=== PATIENT | female | born 1945 | race Caucasian/White ===

== ENCOUNTER 2025-08-23 16:46 | Emergency (ER) | payer OTHER, SELFPAY ==
[2025-08-23 16:49] VITALS: BP 187/79
--- NOTE | 2025-08-23 19:05 | ED.GENMED ---
History of Present Illness
General
Chief Complaint: Head Injury
Source: patient
Exam Limitations: none
Time Seen by Provider: 08/23/25 18:48
Nursing documentation reviewed up to this point in time: agreed with
History of Present Illness
History of Present Illness:
Patient is 80-year-old Female with history of hypertension hyperlipidemia presents to the ER for trip and fall. She tripped over uneven sidewalk. Daughter was with pt.
Patient hit her face and complains of abrasions to her nose. She denies loss of consciousness
she is not on blood thinners only aspirin denies any headache. She denies any neck or back pain.
Phy Exam
General Physical Exam
General Presentation: no apparent distress
General age: appears stated age
General Skin: warm and dry
General Habitus: elderly
General Mental: alert
General Hydration: appears well hydrated
ENT Exam
ENT Exam: EOMI and neck supple
Additional ENT: + abrasions to nose dried blood in nose no active bleeding
Eye Exam
Eye Exam: PERRL and EOMI
Eye Exam General: PERRL: bilateral and EOM intact: bilateral
Pupil Exam: Bilateral: round and reactive
Neurological Exam
Neurological Exam: alert and oriented x3
Musculoskeletal Exam
Musculoskeletal Exam: full ROM and other ( no bony C-spine tenderness )
Skin Exam
Skin Exam: normal color and warm/dry
Psychiatric Exam
Psychiatric Exam: normal mood/affect
Course
Orders/Labs/Results
Orders:
Orders
08/23/25 16:[address] [CT Head W/o Iv Contrast] Urgent
Comment:
Reason For Exam: fall hit head
Vital Signs
Initial and Last Documented VS:
Initial Vital Signs
Temp Pulse Resp BP Pulse Ox
98.9 F 82 19 187/79 98
08/23/25 16:49 08/23/25 16:49 08/23/25 16:49 08/23/25 16:49 08/23/25 16:49
Last Documented Vital Signs
Temp Pulse Resp BP Pulse Ox
98.9 F 82 19 187/79 98
08/23/25 16:49 08/23/25 16:49 08/23/25 16:49 08/23/25 16:49 08/23/25 19:05
MDM/Problems Addressed
Differential Diagnosis Includes:
Not limited to head injury, intracranial hemorrhage, abrasions
MDM/Problems Addressed:
CAT scan negative for intracranial hemorrhage patient has small abrasions to the nose minimal swelling likely contusion no orbital tenderness or orbital deformities. Patient is on aspirin only. Tetanus updated. Patient is well-appearing.
*Radiology
Radiology exam reviewed: radiology read reviewed
*Pulse Oximetry
SaO2: 98
Oxygen Mode of Delivery: Room air
Patient hypoxic: no
*Critical Care Note
Total Time (30-74mins, 75-104mins- exclusive of procedures): Not Applicable
ED Attending Note
-
Portions of this chart may have been created with voice recognition software.� Occasional wrong word or��sound alike� substitutions may have occurred due to the inherent limitations of voice recognition software.
Discharge Plan
Departure
Patient Disposition: Home (Routine Discharge)
Date of Disposition: 08/23/25
Time of Disposition: 19:21
Patient with high blood pressure during this ER visit?: Yes
Condition: Fair
Covid-19: Not Applicable
Discharge Problem:
Head injury, Abrasion of face
Instructions: Head Injury in Adults (DC), Contusion (DC), Abrasions - ED (DC), BLOOD PRESSURE
Referrals:
Paula Parker MD [Family Provider, Internal Medicine]
Activity Restrictions/Additional Instructions:
As discussed CAT scan is negative for acute injury. Wash abrasions with soap and water twice a day apply small layer of antibiotic ointment to the area. See family doctor in the next 2 days for reevaluation. Ice the affected area discussed for
the next 24 hours 20 minutes at a time several times a day. Return for any worsening of symptoms
Interventions
Interventions:
*Risk Screen - Suicide Last Done: 08/23/25 16:49
*General Assessment Last Done: 08/23/25 16:49
*ED- Fall Risk Assessment Last Done: 08/23/25 16:49
*ED COVID-19 Vaccine History Last Done: 08/23/25 16:49
*ED Influenza Vaccine History Last Done: 08/23/25 16:49
Discharge Date and Time
Print Language: MACEDONIAN
[2025-08-23] MEDS: ADACEL 0.5 ML IM (19:28)
[2025-08-23 19:38] VITALS: BP 190/74
== END 2025-08-23 19:40 | disposition home or self-care (01) ==
LOC: EMR 16:46
PROVIDERS: EMERGENCY PHYSICIAN Student in an Organized Health Care Education/Training Program; FAMILY PHYSICIAN Internal Medicine
DX: S09.90XA Unspecified injury of head, initial encounter (principal); S00.31XA Abrasion of nose, initial encounter; W01.0XXA Fall on same level from slipping, tripping and stumbling without subsequent striking against object, initial encounter; Y93.01 Activity, walking, marching and hiking; Y92.480 Sidewalk as the place of occurrence of the external cause; I10 Essential (primary) hypertension; E78.5 Hyperlipidemia, unspecified; Z23 Encounter for immunization; Z79.82 Long term (current) use of aspirin
CPT/HCPCS: 99284; 90471; 70450; 90715